=== PATIENT | female | born 1990 | race Caucasian/White ===

== ENCOUNTER 2019-04-25 20:38 | Emergency (ER) | payer OTHER ==
[~2019-04-25] VITALS: Ht 160 cm; Wt 56.7 kg
[~2019-04-25 20:38] MED LIST: FLAGYL500 MG PO; ONDANSETRON HCL4 M2 PO; PHENERGAN 25 MG25 M1 PO; PRENATAL
[2019-04-25 20:40] VITALS: BP 141/77
[2019-04-25] MEDS ORDERED: MIRENA1 EACH INTRAUTERI (20:44)
[2019-04-25] MEDS ORDERED: MEDROLDOSEPACK PO (21:02)
== END 2019-04-25 21:23 | disposition home or self-care (01) ==
LOC: ER 20:38
DX: L30.9 Dermatitis, unspecified (principal); F17.210 Nicotine dependence, cigarettes, uncomplicated